=== PATIENT | female | born 1990 | race Caucasian/White ===

== ENCOUNTER 2024-04-06 10:15 | Emergency (ER) | payer BC ==
[~2024-04-06] VITALS: Ht 165.1 cm; Wt 65.9 kg
[2024-04-06] MEDS ORDERED: Pantoprazole 40 MG in NS 10 ML IV ONE (10:45)
[2024-04-06 10:51] LABS: BASO % 0.7 % (0.0-2.0); EOS # 0.1 K/mm3 (0.0-0.7); GRAN % 49.5 % (42.2-75.2); HEMATOCRIT 39.2 % (37.0-47.0); HEMOGLOBIN 13.4 g/dl (12.5-16.0); LYMPH # 2.6 K/mm3 (1.2-3.4); LYMPH % 42.8 % (20.0-51.0); MEAN CELL VOLUME 90 fl (80.0-100.0); MEAN CORPUSCULAR HEMOGLOBIN 31 pg (27-31); MEAN CORPUSCULAR HGB CONC 34 g/dl (33.0-37.0); MEAN PLATELET VOLUME 9.9 fl (7.4-10.4); MONO # 0.4 K/mm3 (0.1-0.6); MONO % 5.8 % (1.7-9.3); PLATELET COUNT 265 K/mm3 (130-400); RED BLOOD COUNT 4.36 M/mm3 (4.10-5.30); REDCELL DISTRIBUTION WIDTH-CV 11.8 % (11.5-14.5)
[2024-04-06 11:00] LABS: PROTHROMBIN TIME 11.2 SECONDS (9.7-12.8)
[2024-04-06 11:03] LABS: PARTIAL THROMBOPLASTIN TIME 34.5 SECONDS (26.0-37.0)
[2024-04-06 11:10] LABS: ALBUMIN 4.1 g/dL (3.5-5.0); BILIRUBIN,TOTAL 0.5 mg/dL (0.2-1.2); CALCIUM 9.6 mg/dL (8.4-10.2); CREATININE, serum 0.74 mg/dL (0.57-1.11); TOTAL PROTEIN 7.3 g/dl (6.2-8.1)
[2024-04-06 11:16] LABS: TROPONIN-I 0.01 ng/mL (0.00-0.033)
[2024-04-06 11:40] VITALS: BP 116/82; PULSE 56; TEMP 98.1
[2024-04-06] MEDS ORDERED: PROZAC40 MG PO (14:15)
[2024-04-06] MEDS ORDERED: NEURONTIN300 MG/CAP PO (14:15)
[2024-04-06] MEDS ORDERED: AUBAGIO14 MG PO (14:16)
== END 2024-04-06 14:16 | disposition home or self-care (01) ==
LOC: COL.ER 10:15
PROVIDERS: Family Medicine
DX: R07.89 Other chest pain (principal)
CPT/HCPCS: J2470